=== PATIENT | female | born 1995 | race Caucasian/White ===

== ENCOUNTER 2017-07-09 21:27 | Emergency (ER) | payer SELFPAY ==
--- NOTE | 2017-07-09 22:11 | ER Document Report ---
HPI - HPI Pain Level: 4 Notes: Patient is a 22-year-old female no significant past medical history who presents to the ED possible remaining piece of a tick in her right lower back as she has noticed a dark spot there with a little soreness. Patient has not noticed any expanding redness or erythema. She has not noticed any bull's-eye appearance of a rash. Patient states that the tick bites were there 5 weeks ago and she removed them the same day a implanted. Patient states that she was just moved to the area and was concerned and wanted it looked at. There has not been any other abscess or purulent discharge. No red streaks. Denies any drug allergies. Denies any IV drug use. Denies any headache, fever, URI, sore throat, chest pain, palpitations, syncope, cough, shortness of breath, wheeze, dyspnea, abdominal pain, nausea/vomiting/diarrhea, urinary retention, dysuria, hematuria, or rash. - ROS Systems Reviewed and Negative: Yes All other systems reviewed and negative Past Medical History - Social History Smoking Status: Current Every Day Smoker Family History: Reviewed & Not Pertinent Vertical Provider Document - CONSTITUTIONAL Agree With Documented VS: Yes Notes: PHYSICAL EXAMINATION: GENERAL: Well-appearing, well-nourished and in no acute distress. LUNGS: Breath sounds clear to auscultation bilaterally and equal. No wheezes rales or rhonchi. HEART: Regular rate and rhythm without murmurs, rubs, gallops. Extremities: No cyanosis, clubbing, or edema b/l. NEUROLOGICAL: Normal speech, normal gait. PSYCH: Normal mood, normal affect. SKIN: neck: anterior lower, very small 0.3cm raised area w/o significant erythema, EM, abscess, streaks, or discharge noted. Non-tender. Rt lower back: There is a small dark scab on a 0.3cm raised area with erythema , erythema migrans, abscess, streaks, or discharge. Non-tender. Scab was easily peeled away- no bleeding or discharge. - INFECTION CONTROL TRAVEL OUTSIDE OF THE [place] IN LAST 30 DAYS: No Course - Re-evaluation Re-evalutation: 07/09/17 22:10 Patient is an afebrile, well-hydrated, 22-year-old female who presents to the ED with a worried well visit status post tick bites. Vitals are acceptable. PE is otherwise unremarkable. Pt beyond treatment for prophylaxis and does not meet signs/symptoms for doxycycline treatment at this time. Patient is tolerating p.o. without difficulties. She has no significant tachycardia, tachypnea, or hypoxia. Patient no longer has a dark appearance to where the tick bite was on the right lower back is a scab was peeled away. Reassurance provided to the patient at this time. No labs or imaging warranted at this time based on H&P. Low suspicion for any sepsis, meningitis, cellulitis, abscess requiring I&D, erythema migrans. Patient to monitor symptoms closely for any acute changes or development of erythema migrans or other symptoms as reviewed in d/c. Recheck with the binitrotoluene operator in 1 week. Return to the ED with any worsening/concerning symptoms otherwise as reviewed discharge. Patient is in agreement. Discharge - Discharge Clinical Impression: Worried well Tick bite Qualifiers: Encounter type: initial encounter Qualified Code(s): W57.XXXA - Bitten or stung by nonvenomous insect and other nonvenomous arthropods, initial encounter Condition: Stable Disposition: HOME, SELF-CARE Instructions: Tick Bites ([facility]) Additional Instructions: Keep the skin clean Wash with soap and water Tylenol/ibuprofen if needed Triple antibiotic ointment daily Take medication as directed Monitor for any worsening symptoms Recheck with your PCM in 1 week Return to the ED with any worsening symptoms and/or development of fever, headache, chest pain, palpitations, syncope, shortness of breath, trouble breathing, abdominal pain, n/v/d, abscess, purulent discharge, red streaks, worsening swelling, bull's eye rash, joint pains, or other worsening symptoms that are concerning to you. Forms: Smoking Cessation Education, Elevated Blood Pressure Referrals: [facility] [Provider Group] - Follow up as needed [facility] [Provider Group] - Follow up as needed
[2017-07-09 22:34] VITALS: BP 140/76
== END 2017-07-09 22:25 | disposition home or self-care (01) ==
LOC: ER 21:27
DX: S30.860A Insect bite (nonvenomous) of lower back and pelvis, initial encounter (principal); W57.XXXA Bitten or stung by nonvenomous insect and other nonvenomous arthropods, initial encounter; F17.200 Nicotine dependence, unspecified, uncomplicated
CPT/HCPCS: 99281

== ENCOUNTER 2017-07-27 15:50 | Emergency (ER) | payer MEDICAID ==
[2017-07-27] MEDS ORDERED: RINGERS SOLUTION,LACTATED 1,000 ML IV ONE (16:17)
[2017-07-27] MEDS ORDERED: ONDANSETRON 4 MG TAB.RAPDIS PO ONE (16:17)
[2017-07-27] MEDS ORDERED: OXYCODONE HCL IR 5 MG TABLET PO ONE (16:17)
--- NOTE | 2017-07-27 16:19 | ER Document Report ---
ED Medical Screen (RME) - General Chief Complaint: Flank Pain Stated Complaint: SIDE PAIN Time Seen by Provider: 07/27/17 16:12 Notes: RAPID MEDICAL EVALUATION DISCLOSURE I have seen this patient as part of a Rapid Medical Evaluation and, if applicable, placed any initially appropriate orders. The patient will be seen and fully evaluated, including a full history and physical exam, by a provider ( in Main ED or Fast Track) when a room becomes available. 22-year-old female here with complaints of left flank pain and left lower quadrant abdominal pain as well as hematuria/frequency ongoing for the past 1 month but progressively worsening. She has not had any dysuria diarrhea nausea vomiting vaginal bleeding/discharge fevers (the temp here is 99.3) chills. She has been taking ibuprofen with minimal relief. She denies any prior history of kidney stones. EXAM Tachycardic No CVA tenderness Mild LUQ TTP Moderate LLQ TTP TRAVEL OUTSIDE OF THE [place] IN LAST 30 DAYS: No - Related Data Allergies/Adverse Reactions: No Known Allergies Allergy (Unverified 07/09/17 21:36) Past Medical History Renal/ Medical History: Denies: Hx Peritoneal Dialysis Physical Exam - Vital signs Vitals: Temp Pulse Resp BP Pulse Ox 99.6 F 117 H 16 133/75 H 97 07/27/17 16:08 07/27/17 16:08 07/27/17 16:08 07/27/17 16:08 07/27/17 16:08 Course - Vital Signs Vital signs: Temp Pulse Resp BP Pulse Ox 99.6 F 117 H 16 133/75 H 97 07/27/17 16:08 07/27/17 16:08 07/27/17 16:08 07/27/17 16:08 07/27/17 16:08
[2017-07-27 16:48] LABS: ABSOLUTE BASOPHILS # (AUTO) 0.1 10^3/uL (0.0-0.2); ABSOLUTE EOSINOPHILS # (AUTO) 0.2 10^3/uL (0.0-0.6); ABSOLUTE MONOCYTES (AUTO) 0.5 10^3/uL (0.1-1.4); ABSOLUTE NEUT (AUTO) 4.7 10^3/uL (1.7-8.2); BASOPHILS % (AUTO) 0.8 % (0-2); EOSINOPHILS % (AUTO) 2.3 % (0-6); HEMATOCRIT 44.2 % (36.0-47.0); HEMOGLOBIN 15.3 g/dL (12.0-15.5); LYMPHOCYTES % (AUTO) 26.6 % (13-45); MEAN CORPUSCULAR HEMOGLOBIN 29.2 pg (27.0-33.4); MEAN CORPUSCULAR HGB CONC 34.6 g/dL (32.0-36.0); MEAN CORPUSCULAR VOLUME 84 fl (80-97); MONOCYTES % (AUTO) 6.4 % (3-13); PLATELET COUNT 324 10^3/uL (150-450); RED BLOOD COUNT 5.25 10^6/uL (3.72-5.28); RED CELL DISTRIBUTION WIDTH 13.9 % (11.5-14.0); SEGMENTED NEUTROPHILS % (AUTO) 63.9 % (42-78); TOTAL CELLS COUNTED % (AUTO) 100 %; WHITE BLOOD COUNT 7.4 10^3/uL (4.0-10.5)
[2017-07-27 17:05] LABS: ALANINE AMINOTRANSFERASE 29 U/L (9-52); ALBUMIN 3.6 g/dL (3.5-5.0); ALKALINE PHOSPHATASE 46 U/L (38-126); ANION GAP 13 (5-19); ASPARTATE AMINO TRANSFERASE 18 U/L (14-36); BILIRUBIN,DIRECT 0.2 mg/dL (0.0-0.4); BILIRUBIN,TOTAL 0.3 mg/dL (0.2-1.3); BLOOD UREA NITROGEN 11 mg/dL (7-20); CALCIUM 9.1 mg/dL (8.4-10.2); CARBON DIOXIDE 22 mmol/L (22-30); CHLORIDE 109 mmol/L (98-107); GLUCOSE 119 mg/dL (75-110); LIPASE 86.5 U/L (23-300); POTASSIUM 4.1 mmol/L (3.6-5.0); SODIUM 143.7 mmol/L (137-145); TOTAL PROTEIN 5.7 g/dL (6.3-8.2)
[2017-07-27 18:43] LABS: AMORPHOUS SEDIMENT,URINE 1+ /HPF; APPEARANCE,URINE TURBID; BILIRUBIN,URINE NEGATIVE (NEGATIVE); COLOR,URINE YELLOW; GLUCOSE, URINE NEGATIVE (NEGATIVE); KETONES,URINE TRACE mg/dL (NEGATIVE); LEUKOCYTE ESTERASE,URINE NEGATIVE (NEGATIVE); NITRITE,URINE NEGATIVE (NEGATIVE); PROTEIN,URINE NEGATIVE (NEGATIVE); URINE SPECIFIC GRAVITY 1.027
--- NOTE | 2017-07-27 18:57 | RADIOLOGY REPORT (SQ) ---
EXAM DESCRIPTION: CT LTD RENAL STONE PROTOCOL ON COMPLETED DATE/TIME: 07/27/2017 6:48 pm REASON FOR STUDY: L flank pain hematuria COMPARISON: None. TECHNIQUE: CT scan of the abdomen and pelvis performed without intravenous or oral contrast. Images reviewed with lung, soft tissue, and bone windows. Reconstructed coronal and sagittal MPR images revi ewed. All images stored on PACS. All CT scanners at this facility use dose modulation, iterative reconstruction, and/or weight based d osing when appropriate to reduce radiation dose to as low as reasonably achievable (ALARA). [facility]: Dose Right [facility]: CareDose [facility]: Dose Right [facility]: Teradose 4D [facility]: [employer] RADIATION DOSE: CT Rad equipment meets quality standard of care and radiation dose reduction techniq ues were employed. CTDIvol: 18.9 mGy. DLP: 1028 mGy-cm.mGy. LIMITATIONS: None. FINDINGS: LOWER CHEST: No significant findings. No nodules or infiltrates. NON-CONTRASTED LIVER, SPLEEN, ADRENALS: Evaluation limited by lack of IV contrast. No identified sign ificant masses. PANCREAS: No masses. No peripancreatic inflammatory changes. GALLBLADDER: No identified stones by CT criteria. No inflammatory changes to suggest cholecystitis. RIGHT KIDNEY AND URETER: No suspicious masses. Assessment limited by lack of IV contrast. No signif icant calcifications. No hydronephrosis or hydroureter. LEFT KIDNEY AND URETER: No suspicious masses. Assessment limited by lack of IV contrast. No signifi cant calcifications. No hydronephrosis or hydroureter. AORTA AND RETROPERITONEUM: No aneurysm. No retroperitoneal masses or adenopathy. BOWEL AND PERITONEAL CAVITY: No obvious masses or inflammatory changes. No free fluid. APPENDIX: Normal. PELVIS, BLADDER, AND ABDOMINAL WALL:No abnormal masses. No free fluid. Bladder normal. BONES: No significant findings. OTHER: No other significant finding. IMPRESSION: NO SIGNIFICANT OR ACUTE PROCESS IN THE ABDOMEN OR PELVIS. COMMENT: Quality ID # [id number]: Final reports with documentation of one or more dose reduction techniques (e.g., Automated exposure control, adjustment of the mA and/or kV according to patient size, use of iterative reconstruction technique) TECHNICAL DOCUMENTATION: JOB ID: [id number] RE2- All Rights Reserved Reading location - IP/workstation name: [email or web address]
--- NOTE | 2017-07-27 19:04 | ER Document Report ---
ED General - General Chief Complaint: Flank Pain Stated Complaint: SIDE PAIN Time Seen by Provider: 07/27/17 16:12 TRAVEL OUTSIDE OF THE [place] IN LAST 30 DAYS: No - HPI Notes: 22-year-old female who presents with left-sided flank and abdominal pain. Patient describes approximately 2+ months of intermittent pain, always pressure. Describes in her left lower back and left flank region that is times radiates around her left mid abdomen. No vaginal bleeding or discharge. No fever, chills or sweats. She is unable to relate any particular precipitant but does state that is worse with twisting motion. No known injury. No other modifying factors, no other associated symptoms, no other provocative or palliative factors. - Related Data Allergies/Adverse Reactions: No Known Allergies Allergy (Verified 07/27/17 18:22) Past Medical History - Social History Smoking Status: Current Every Day Smoker Chew tobacco use (# tins/day): No Frequency of alcohol use: Occasional Drug Abuse: None Family History: Reviewed & Not Pertinent Patient has suicidal ideation: No Patient has homicidal ideation: No - Medical History Medical History: Negative Renal/ Medical History: Denies: Hx Peritoneal Dialysis Review of Systems - Review of Systems Notes: Review of systems as in the history of present illness, otherwise negative. Physical Exam - Vital signs Vitals: Temp Pulse Resp BP Pulse Ox 99.6 F 117 H 16 133/75 H 97 07/27/17 16:08 07/27/17 16:08 07/27/17 16:08 07/27/17 16:08 07/27/17 16:08 - Notes Notes: General: Well developed . HEENT: Normocephalic, atraumatic. Pupils equal round reactive to light. No JVD. Chest: No trauma. Respiratory: Good air exchange, normal excursion. Cardiac: Regular rhythm. No murmurs or gallops. Abdomen: Soft, benign. Nondistended. mild left mid quadrant tenderness Back: No asymmetry or gross abnormality. There is exquisitely reproducible right paralumbar tenderness without overlying skin change. Motor: Grossly normal power and tone. Neurologic: Alert, nonfocal. Cranial nerves II-12 are intact. Sensation intact. Vascular: Well perfused. Normal peripheral pulses. Skin: No petechiae or purpura. Course - Re-evaluation Re-evalutation: 07/27/17 19:01 Note patient was seen by physician in triage ordered extensive laboratory and radiographic workup including CT imaging. This was reviewed at the same time I saw the patient. 22-year-old female presents the after mentioned symptoms. Review of her records show normal CBC, normal chemistries, normal LFTs. Urine test negative. Urinalysis was unremarkable except for trace blood. CT imaging was unremarkable. Patient has done well throughout her ED course, appears to be comfortable, has benign abdomen. Wishes safe discharge home. Much of her symptomatology appears to be somewhat reproducible and has a muscular skeletal component. I will treat her with naproxen and Flexeril, outpatient follow-up. - Vital Signs Vital signs: Temp Pulse Resp BP Pulse Ox 99.6 F 117 H 16 133/75 H 97 07/27/17 16:08 07/27/17 16:08 07/27/17 16:08 07/27/17 16:08 07/27/17 16:08 - Laboratory Result Diagrams: 07/27/17 16:25 07/27/17 16:25 Laboratory results interpreted by me: 07/27/17 07/27/17 16:25 16:25 Chloride 109 H Glucose 119 H Total Protein 5.7 L Urine Ketones TRACE H Urine Blood SMALL H Urine Urobilinogen 2.0 H Discharge - Discharge Clinical Impression: Flank pain Condition: Good Disposition: HOME, SELF-CARE Instructions: Flank Pain ([facility]) Prescriptions: Cyclobenzaprine HCl [Flexeril 10 mg Tablet] 10 mg PO TIDP PRN #15 tab NS PRN Reason: Naproxen [Naprosyn] 500 mg PO Q12 PRN #12 tablet PRN Reason:
[2017-07-27 19:13] VITALS: BP 123/69
== END 2017-07-27 19:14 | disposition home or self-care (01) ==
LOC: ER 15:50
DX: R10.9 Unspecified abdominal pain (principal); F17.200 Nicotine dependence, unspecified, uncomplicated
CPT/HCPCS: 99284; 96360; 36415; 83690; 85025; 81025; 80053; 81001; 76380; S0119; J7120; J3490

== ENCOUNTER 2019-06-01 16:36 | Emergency (ER) | payer MEDICAID ==
[2019-06-01 16:42] VITALS: BP 135/69
--- NOTE | 2019-06-01 17:41 | ER Document Report ---
ED General - General Chief Complaint: Toothache Stated Complaint: TOOTH PAIN Notes: Patient is a 23-year-old white female with current gestation of approximately 2 months who presents to the emergency department with a chief complaint of dental pain for the past several days. She has been trying ibuprofen Tylenol and Orajel without any improvement. She states is the left upper and left lower teeth posteriorly. She denies any history of dental problems. States it hurts with any chewing or oral intake of hot and cold foods. States the pain radiates to the jaw and face. Denies any fever, tongue or throat swelling or difficulty with secretions or trouble breathing. TRAVEL OUTSIDE OF THE [place] IN LAST 30 DAYS: No - Related Data Allergies/Adverse Reactions: No Known Allergies Allergy (Verified 06/01/19 17:24) Home Medications: prenatals Past Medical History - Social History Smoking Status: Current Some Day Smoker Chew tobacco use (# tins/day): No Frequency of alcohol use: None Drug Abuse: None Family History: Reviewed & Not Pertinent Patient has suicidal ideation: No Patient has homicidal ideation: No Renal/ Medical History: Denies: Hx Peritoneal Dialysis Review of Systems - Review of Systems EENT: Dental problem -: Yes All other systems reviewed and negative Physical Exam - Vital signs Vitals: Temp Pulse Resp BP Pulse Ox 99.8 F 96 18 135/69 H 97 06/01/19 16:40 06/01/19 16:40 06/01/19 16:40 06/01/19 16:40 06/01/19 16:40 - General General appearance: Appears well, Alert - HEENT Head: Normocephalic, Atraumatic Eyes: Normal Conjunctiva: Normal Extraocular movements intact: Yes Ears: Normal External canal: Normal Tympanic membrane: Normal Nasal: Normal Mouth/Lips: Normal Mucous membranes: Moist Notes: Tenderness to percussion of the upper left and lower left posterior molars. Gingival erythema surrounding the area is noted. No drainage or abscess formation noted. No trismus. Patent airway, handling secretions well. No sublingual or submental swelling. - Respiratory Respiratory status: No respiratory distress Chest status: Nontender Breath sounds: Normal Chest palpation: Normal - Cardiovascular Rhythm: Regular Heart sounds: Normal auscultation - Neurological Neuro grossly intact: Yes Cognition: Normal Orientation: AAOx4 [place] Coma Scale Eye Opening: Spontaneous [place] Coma Scale Verbal: Oriented [place] Coma Scale Motor: Obeys Commands [place] Coma Scale Total: 15 Speech: Normal - Psychological Associated symptoms: Normal affect, Normal mood - Skin Skin Temperature: Warm Skin Moisture: Dry Skin Color: Normal Course - Re-evaluation Re-evalutation: 06/01/19 17:40 Patient was counseled to discontinue ibuprofen use in the presence of . She can continue to use Tylenol per label instructions. Will add oral pharyngeal lidocaine solution that she is to swish and spit. She will start on Pen-Vee K and follow-up with a dentist. Counseled her regarding the importance of outpatient follow-up and advised she return here or any ER immediately with any new, persistent or worsening symptoms. She verbalized understood and agreed. - Vital Signs Vital signs: Temp Pulse Resp BP Pulse Ox 99.8 F 96 18 135/69 H 97 06/01/19 16:40 06/01/19 16:40 06/01/19 16:40 06/01/19 16:40 06/01/19 16:40 Discharge - Discharge Clinical Impression: Dental abscess, Dentalgia Condition: Stable Disposition: HOME, SELF-CARE Instructions: Toothache ([facility]) Additional Instructions: Please follow-up with the dentist as soon as possible. Please return here or any ER immediately with any new, persistent or worsening symptoms. Prescriptions: Penicillin V Potassium [Penicillin Vk 500 mg Tablet] 500 mg PO QID #40 tablet Lidocaine HCl [Xylocaine 2% Viscous Soln 15 ml Udcup] 15 ml MM QID PRN #12 udc PRN Reason:
== END 2019-06-01 17:41 | disposition home or self-care (01) ==
LOC: ER 16:36
DX: K04.7 Periapical abscess without sinus (principal); K02.9 Dental caries, unspecified; K08.89 Other specified disorders of teeth and supporting structures; R68.84 Jaw pain; R51 Headache; F17.200 Nicotine dependence, unspecified, uncomplicated
CPT/HCPCS: 99282